=== PATIENT | female | born 1990 | race Caucasian/White ===

== ENCOUNTER 2017-03-30 23:43 | Emergency (ER) | payer MEDICAID, OTHER ==
[~2017-03-30] VITALS: Ht 167.6 cm; Wt 100.0 kg
[~2017-03-30 23:43] MED LIST: DICL75 PO; TRAM50 PO
[2017-03-30 23:50] VITALS: BP 157/78; PULSE 91; RESP 18; TEMP 98.5; O2SAT 98
[2017-03-31] MEDS ORDERED: ONDANSETRON HCL 4 MG/2 ML VIAL IV ONE
[2017-03-31] MEDS ORDERED: MORPHINE SULFATE 4 MG/ML INJ IV PUSH ONE
[2017-03-31] MEDS ORDERED: SODIUM CHLORIDE 0.9% FLUSH 10 ML FLUSH IVF PRN
[2017-03-31] MEDS ORDERED: SODIUM CHLOR 0.9% 1000 ML INJ 1,000 ML IV SCH
[2017-03-31] MEDS ORDERED: PROZ20CA11 PO (00:04)
[2017-03-31] MEDS ORDERED: PROZ40CA PO (00:04)
[2017-03-31] MEDS ORDERED: ACET-815 PO (00:04)
[2017-03-31] MEDS ORDERED: MORPHINE SULFATE 8 MG/ML INJ ONE (00:09)
[2017-03-31] MEDS ORDERED: MORPHINE SULFATE 8 MG/ML INJ IV PUSH ONE (00:15)
[2017-03-31 00:16] LABS: CHLORIDE 106 MEQ/L (98-107); POTASSIUM 3.7 MEQ/L (3.5-5.1); SODIUM (NA) 140 MEQ/L (136-145)
[2017-03-31 00:19] LABS: AUTOMATED NEUTROPHIL # 6.6 TH/MM3 (1.8-7.7); BASOPHIL % 0.4 % (0.0-2.0); EOSINOPHIL # 0.2 TH/MM3 (0-0.4); EOSINOPHIL % 1.5 % (0.0-4.0); HEMATOCRIT 42.7 % (35.0-46.0); LYMPH % 36.1 % (9.0-44.0); LYMPHOCYTE # 4.3 TH/MM3 (1.0-4.8); MEAN CELL VOLUME 85.8 FL (80.0-100.0); MEAN CORPUSCULAR HGB CONC 33.8 % (32.0-36.0); MONO % 6.8 % (0.0-8.0); NEUT % 55.2 % (16.0-70.0); PLATELET COUNT 245 TH/MM3 (150-450); RED BLOOD COUNT 4.98 MIL/MM3 (4.00-5.30); RED CELL DISTRIBUTION WIDTH 13.1 % (11.6-17.2); WHITE BLOOD COUNT 11.9 TH/MM3 (4.0-11.0)
[2017-03-31 00:20] LABS: ANION GAP 11 MEQ/L (5-15); BICARBONATE 23.3 MEQ/L (21.0-32.0); BLOOD UREA NITROGEN 22 MG/DL (7-18); MAGNESIUM 1.9 MG/DL (1.5-2.5)
[2017-03-31 00:22] LABS: APTT (PATIENT) 28.3 SEC (24.3-30.1); INTERNATIONAL NORMALIZED RATIO 0.9 RATIO; PROTHROMBIN TIME - PATIENT 10.3 SEC (9.8-11.6)
[2017-03-31 00:23] LABS: ALT (GPT) 36 U/L (10-53); AST (GOT) 31 U/L (15-37); GLOMERULAR FILTRATION RATE 66 ML/MIN (>89)
[2017-03-31 00:24] LABS: TOTAL BILIRUBIN ADULT 0.2 MG/DL (0.2-1.0)
[2017-03-31 00:25] LABS: ALKALINE PHOSPHATASE 105 U/L (45-117)
--- NOTE | 2017-03-31 00:33 | RADRPT ---
EXAM DATE/TIME: 03/31/2017 00:02 [facility] COMPARISON: No previous studies available for comparison. INDICATIONS : Chest pain. MEDICAL HISTORY : None. SURGICAL HISTORY : None. ENCOUNTER: Initial ACUITY: 2 days PAIN SCORE: 4/10 LOCATION: Bilateral chest FINDINGS: A single view of the chest demonstrates the lungs to be symmetrically aerated without evidence of mas s, infiltrate or effusion. No evidence of pneumothorax. The cardiomediastinal contours are unremarka ble. Osseous structures are intact. CONCLUSION: No acute intrathoracic disease Mu Loaiza MD on March 31, 2017 at 0:30 Board Certified Radiologist. This report was verified electronically.
--- NOTE | 2017-03-31 00:34 | RADRPT ---
EXAM DATE/TIME: 03/31/2017 00:16 [facility] COMPARISON: No previous studies available for comparison. INDICATIONS : Right upper quadrant and chest pain. MEDICAL HISTORY : Right upper quadrant and chest pain. GERD. SURGICAL HISTORY : Tonsillectomy. ENCOUNTER: Initial ACUITY: 1 day PAIN SCORE: 7/10 LOCATION: Right upper quadrant MEASUREMENTS: LIVER: 18.2 cm length COMMON DUCT: 3 mm RIGHT KIDNEY: 9.9 x 4.7 x 4.5 cm FINDINGS: LIVER: Mild increased echotexture without focal lesion or ductal dilatation. The portal system is patent. No evidence of ascites. COMMON DUCT: No intraluminal mass or stone visualized. GALLBLADDER: Contains no stones, demonstrates no wall thickening or pericholecystic fluid. PANCREAS: Not well demonstrated due to overlying bowel gas. RIGHT KIDNEY: No evidence of hydronephrosis, stone, or mass. CONCLUSION: 1. There appears to be increased echogenicity within the liver suggestive of fatty infiltration. The liver is mildly enlarged. 2. No evidence of gallstones or biliary tract obstruction. Mu Loaiza MD on March 31, 2017 at 0:31 Board Certified Radiologist. This report was verified electronically.
[2017-03-31 00:35] LABS: HEMO FLAGS DIFF FINAL
[2017-03-31 00:56] VITALS: BP 133/76; PULSE 68; RESP 16; O2SAT 99
[2017-03-31] MEDS ORDERED: RANI150C PO (01:30)
--- NOTE | 2017-03-31 01:30 | PD ---
HPI Chief Complaint: Chest Pain Time Seen by Provider: 23:55 Travel History International Travel<30 days: No Contact w/Intl Traveler<30days: No Traveled to known affect area: No History of Present Illness HPI The 27-year-old woman presents to the emergency department complaining of chest pain. Symptoms started yesterday. The been waxing and waning periods mostly in her upper abdomen. So she was some shortness of breath and some nausea. She also had some abdominal discomfort. She otherwise had been feeling well. She does have some history of indigestion and reflux. She does abdominal surgery as an infant that sounds like pyloric stenosis surgery. She takes Midol as needed for toothaches, but no NSAIDs. She denies any alcohol. Denies any IV drug use. Review of systems is positive only for a little bit of increased urination. History Past Medical History Narrative Medical Depression/anxiety Tetanus Vaccination: Unknown Influenza Vaccination: No LMP: 03/07/17 : 1 Para: 1 Social History Alcohol Use: No Tobacco Use: Yes (1/2 PPD) Allergies-Medications (Allergen,Severity, Reaction): Coded Allergies: Amoxicillin (Unverified Allergy, Severe, SWELLING, 03/30/17) Penicillin (Unverified Allergy, Severe, SWELLING, 03/30/17) Reported Meds & Prescriptions Reported Meds & Active Scripts Active Reported Midol Teen (Acetaminophen-Pamabrom) 500-25 mg Tab 2 Tab PO Q6HR PRN Prozac (Fluoxetine HCl) 20 Mg Cap 20 Mg PO BID Review of Systems Except as stated in HPI: all other systems reviewed are Neg Physical Exam Narrative GENERAL: Well-appearing 27 year-old woman, uncomfortable but nontoxic. SKIN: Focused skin assessment warm/dry. HEAD: Atraumatic. Normocephalic. EYES: Pupils equal and round. No scleral icterus. No injection or drainage. ENT: No nasal bleeding or discharge. Mucous membranes pink and moist. NECK: Trachea midline. No JVD. CARDIOVASCULAR: Regular rate and rhythm. No murmur appreciated. RESPIRATORY: No accessory muscle use. Clear to auscultation. Breath sounds equal bilaterally. GASTROINTESTINAL: Abdomen is obese and soft. Looks well. Mild epigastric tenderness. MUSCULOSKELETAL: No obvious deformities. No clubbing. No cyanosis. No edema. NEUROLOGICAL: Awake and alert. No obvious cranial nerve deficits. Motor grossly within normal limits. Normal speech. PSYCHIATRIC: Appropriate mood and affect; insight and judgment normal. Data Data Last Documented VS Vital Signs Date Time Temp Pulse Resp B/P Pulse Ox O2 Delivery O2 Flow Rate FiO2 03/31/17 00:56 68 16 133/76 99 Room Air 03/30/17 23:50 98.5 Orders Electrocardiogram (03/30/17 23:55) Complete Blood Count With Diff (03/30/17 23:55) Comprehensive Metabolic Panel (03/30/17 23:55) Magnesium (Mg) (03/30/17 23:55) Prothrombin Time / Inr (Pt) (03/30/17 23:55) Act Partial Throm Time (Ptt) (03/30/17 23:55) Troponin I (03/30/17 23:55) Lipase (03/30/17 23:55) Chest, Single Ap (03/30/17 23:55) Ecg Monitoring (03/30/17 23:55) Bilateral Bp Monitoring (03/30/17 23:55) Iv Access Insert/Monitor (03/30/17 23:55) Oximetry (03/30/17 23:55) Oxygen Administration (03/30/17 23:55) Sodium Chloride 0.9% Flush (Ns Flush) (03/31/17 00:00) Us Abdomen Gallbladder (03/31/17 ) Sodium Chlor 0.9% 1000 Ml Inj (Ns 1000 M (03/31/17 00:00) Ondansetron Inj (Zofran Inj) (03/31/17 00:00) Morphine Inj (Morphine Inj) (03/31/17 00:00) Morphine Inj (Morphine Inj) (03/31/17 00:09) Morphine Inj (Morphine Inj) (03/31/17 00:15) Labs Laboratory Tests Test 03/30/17 23:50 White Blood Count 11.9 TH/MM3 Red Blood Count 4.98 MIL/MM3 Hemoglobin 14.4 GM/DL Hematocrit 42.7 % Mean Corpuscular Volume 85.8 FL Mean Corpuscular Hemoglobin 29.0 PG Mean Corpuscular Hemoglobin 33.8 % Concent Red Cell Distribution Width 13.1 % Platelet Count 245 TH/MM3 Mean Platelet Volume 10.1 FL Neutrophils (%) (Auto) 55.2 % Lymphocytes (%) (Auto) 36.1 % Monocytes (%) (Auto) 6.8 % Eosinophils (%) (Auto) 1.5 % Basophils (%) (Auto) 0.4 % Neutrophils # (Auto) 6.6 TH/MM3 Lymphocytes # (Auto) 4.3 TH/MM3 Monocytes # (Auto) 0.8 TH/MM3 Eosinophils # (Auto) 0.2 TH/MM3 Basophils # (Auto) 0.0 TH/MM3 CBC Comment DIFF FINAL Differential Comment Prothrombin Time 10.3 SEC Prothromb Time International 0.9 RATIO Ratio Activated Partial 28.3 SEC Thromboplast Time Sodium Level 140 MEQ/L Potassium Level 3.7 MEQ/L Chloride Level 106 MEQ/L Carbon Dioxide Level 23.3 MEQ/L Anion Gap 11 MEQ/L Blood Urea Nitrogen 22 MG/DL Creatinine 1.00 MG/DL Estimat Glomerular Filtration 66 ML/MIN Rate Random Glucose 111 MG/DL Calcium Level 9.0 MG/DL Magnesium Level 1.9 MG/DL Total Bilirubin 0.2 MG/DL Aspartate Amino Transf 31 U/L (AST/SGOT) Alanine Aminotransferase 36 U/L (ALT/SGPT) Alkaline Phosphatase 105 U/L Troponin I LESS THAN 0.02 NG/ML Total Protein 7.3 GM/DL Albumin 3.4 GM/DL Lipase 170 U/L MDM Medical Decision Making Medical Screen Exam Complete: Yes Emergency Medical Condition: Yes Interpretation(s) LABS: CBC is unremarkable. CMP is remarkable for mildly elevated BUN. Troponins negative. Lipase is normal. Liver enzymes are normal. Coags are unremarkable. Gallbladder ultrasound: Increased echogenicity in the liver suggestive of fatty infiltration. No evidence of gallstones or biliary tract obstruction. Chest x-ray negative. My review of EKG: Normal sinus rhythm at a rate of 77, normal axis, normal intervals, no acute ischemia. Differential Diagnosis Cholecystitis, pancreatitis, gastritis, other Narrative Course Medical decision making Is a 27 year-old woman presents emergent from complaining of epigastric abdominal pain and chest pain. Gallbladder workup is unremarkable. Is likely gastritis. Recommend supportive treatment. Diagnosis Primary Impression: Gastritis Additional Impression: Chest pain Additional Instructions: Take ranitidine as prescribed. Follow-up with her primary doctor in 2-3 days. Return to the emergency department for any new or worsening symptoms. Med/Other Pt SpecificInfo: No Change to Meds Scripts Ranitidine 150 Mg Lpl064 Mg PO BID #[id number] CAP Prov:Maverick Corona MD 03/31/17 Disposition: 01 DISCHARGE HOME Condition: Stable Maverick Corona MD Mar 31, 2017 01:30
--- NOTE | 2017-04-01 19:28 | EKG ---
Date Performed: 03/30/2017 Time Performed: 23:56:55 PTAGE: 27 years EKG: Sinus rhythm NON-SPECIFIC ST/T WAVE CHANGES INTERPRETATION BASED ON A DEFAULT AGE OF 38 YEARS NO PREVIOUS TRACING DOCTOR: Betito Horne Interpretating Date/Time 04/01/2017 19:27:07
== END 2017-03-31 01:51 | disposition home or self-care (01) ==
LOC: PHED 23:43
DX: K29.70 Gastritis, unspecified, without bleeding (principal); R07.9 Chest pain, unspecified; R06.02 Shortness of breath; R11.0 Nausea; F17.200 Nicotine dependence, unspecified, uncomplicated; Z86.59 Personal history of other mental and behavioral disorders
CPT/HCPCS: 71010; 76705; 80053; 83690; 83735; 84484; 85025; 85610; 85730; 93005; 96361; 96374; 96375; 99285; J2270; J2405; J7030